=== PATIENT | female | born 1950 | race Caucasian/White ===

== ENCOUNTER → 2016-10-25 | Outpatient (CLI) | payer OTHER ==
--- NOTE | 2016-10-26 15:43 | Diagnostic Imaging Report ---
Bilateral screening mammogram 2D views with tomosynthesis. The current study was also evaluated with a Computer Aided Detection (CAD) system. INDICATION: Screening. No current complaints stated on the questionnaire. COMPARISON: 12/23/12. FINDINGS: Breasts are composed of scattered fibroglandular densities. There are occasional benign-appearing calcifications. Allowing for technique and positional differences, no suspicious change is seen. IMPRESSION: No significant change. ACR BI-RADS Category 2: Benign findings. Result letter will be mailed to the patient. Note: At least 10% of breast cancer is not imaged by mammography. Dictated by: Dictated on workstation # [id number]
== END ==
LOC: RAD 14:15
PROVIDERS: ATTEND Family Medicine
DX: Z12.31 Encounter for screening mammogram for malignant neoplasm of breast (principal); N64.4 Mastodynia
CPT/HCPCS: 77067

== ENCOUNTER 2016-11-08 05:39 | Outpatient (CLI) | payer OTHER ==
[~2016-11-08] VITALS: Ht 154.9 cm; Wt 72.6 kg
[2016-11-08] MEDS ORDERED: OMEP20TA7 PO (10:10)
[2016-11-08] MEDS ORDERED: CYCL10TA9 PO (10:10)
[2016-11-08] MEDS ORDERED: CITA40TA11 PO (10:10)
[2016-11-08] MEDS ORDERED: LOSA50TA36 PO (10:10)
== END 2016-11-08 10:11 ==
LOC: PREOP 05:39
PROVIDERS: ATTEND Surgery
DX: Z01.818 Encounter for other preprocedural examination (principal); K21.9 Gastro-esophageal reflux disease without esophagitis

== ENCOUNTER → 2016-11-09 | Outpatient (CLI) | payer OTHER, MEDICARE ==
[~2016-11-09] MED LIST: CITA40TA11 PO; CYCL10TA9 PO; LOSA50TA36 PO; OMEP20TA7 PO
[2016-11-09 08:45] LABS: BASOPHILS % (AUTO) 0 % (0-10); EOSINOPHILS # (AUTO) 0.2 10^3/uL (0.0-0.3); EOSINOPHILS % (AUTO) 3 % (0-10); LYMPHOCYTES # (AUTO) 1.6 X 10^3 (1.0-4.0); LYMPHOCYTES % (AUTO) 21 % (12-44); MEAN CORPUSCULAR HEMOGLOBIN 29 PG (25-34); MEAN CORPUSCULAR HGB CONC 33 G/DL (32-36); MEAN CORPUSCULAR VOLUME 87 FL (80-99); MEAN PLATELET VOLUME 10.5 FL (7.4-10.4); MONOCYTES # (AUTO) 0.2 X 10^3 (0.0-1.0); MONOCYTES % (AUTO) 3 % (0-12); NEUTROPHILS # (AUTO) 5.4 X 10^3 (1.8-7.8); NEUTROPHILS % (AUTO) 73 % (42-75); PLATELET COUNT 164 10^3/uL (130-400); RED BLOOD COUNT 4.67 10^6/uL (4.35-5.85); RED CELL DISTRIBUTION WIDTH 12.6 % (10.0-14.5); WHITE BLOOD COUNT 7.4 10^3/uL (4.3-11.0)
[2016-11-09 09:06] LABS: ALANINE AMINOTRANSFERASE 27 U/L (0-55); ALBUMIN 4.2 GM/DL (3.2-4.5); ANION GAP 11 MMOL/L (5-14); ASPARTATE AMINO TRANSFERASE 18 U/L (5-34); BILIRUBIN,TOTAL 0.4 MG/DL (0.1-1.0); BLOOD UREA NITROGEN 23 MG/DL (7-18); BUN/CREATININE RATIO 27; CALCIUM 9.6 MG/DL (8.5-10.1); CARBON DIOXIDE 25 MMOL/L (21-32); CHLORIDE 104 MMOL/L (98-107); CHOLESTEROL 274 MG/DL (< 200); CREATININE SERUM 0.86 MG/DL (0.60-1.30); DIRECT LDL 209 MG/DL (1-129); GFR ESTIMATED > 60; GLUCOSE 127 MG/DL (70-105); POTASSIUM 4.4 MMOL/L (3.6-5.0); SODIUM 140 MMOL/L (135-145); TOTAL PROTEIN 7.1 GM/DL (6.4-8.2); TRIGLYCERIDES 105 MG/DL (<150); VLDL CHOLESTEROL 21 MG/DL (5-40)
[2016-11-09 09:26] LABS: THYROID STIMULATING HORMONE 1.04 UIU/ML (0.35-4.94)
== END ==
LOC: LAB 07:54
PROVIDERS: ATTEND Family Medicine
DX: I10 Essential (primary) hypertension (principal); E78.2 Mixed hyperlipidemia; E03.8 Other specified hypothyroidism
CPT/HCPCS: 36415; 80053; 80061; 84443; 85025

== ENCOUNTER 2016-11-13 07:35 | Day surgery (SDC) | payer OTHER, MEDICARE ==
[~2016-11-13] VITALS: Ht 154.9 cm; Wt 72.6 kg
[2016-11-13 07:43] VITALS: BP 148/89
[2016-11-13] MEDS ORDERED: NS IV 500 ML 500 ML IV PRN (07:45)
[2016-11-13] MEDS ORDERED: fentaNYL INJECTION 100 MCG/2 ML AMP IVP PRN (08:00)
[2016-11-13] MEDS ORDERED: MIDAZOLAM 2 MG/2 ML (VERSED) VIAL IVP PRN (08:00)
[2016-11-13] MEDS ORDERED: HURRICAINE EXT TUBE (BENZOCAINE) XX PRN (08:00)
--- NOTE | 2016-11-13 08:43 | History & Physicial ---
History of Present Illness History of Present Illness Reason for visit/HPI to undergo an upper endoscopy regarding symptoms of reflux disease and for screening colonoscopy at the same time. Date of Admission Date Seen by Provider: Nov 13, 2016 Time Seen by Provider: 08:42 I consulted on this patient on 11/13/16 08:42 Attending Physician Dodie Guaman MD Admitting Physician Adriel Xavier MD Consult Allergies and Home Medications Allergies Coded Allergies: No Known Drug Allergies (Unverified , 11/08/16) Home Medications Citalopram Hydrobromide 40 Mg Tablet, 40 MG PO DAILY, (Reported) Cyclobenzaprine HCl 10 Mg Tablet, 10 MG PO TID, (Reported) Losartan Potassium 50 Mg Tablet, 50 MG PO DAILY, (Reported) Omeprazole 20 Mg Tablet.dr, 20 MG PO DAILY, (Reported) Past Psmcycw-Kxcbvo-Gajivp Hx Patient Social History Marrital Status: Employed/Student: retired Alcohol Use: Occasionally Uses Recreational Drug Use: No Smoking Status: Never a Smoker Recent Foreign Travel: No Contact w/other who traveled: No Recent Hopitalizations: No Recent Infectious Disease Expo: No Seasonal Allergies Seasonal Allergies: Yes Surgeries HX Surgeries: Yes (breast reduction, ) Surgeries: Hysterectomy Respiratory Hx Respiratory Disorders: No Cardiovascular Hx Cardiovascular Disorders: No Cardiac Disorders: Hypertension Neurological Hx Neurological Disorders: No Genitourinary Hx Genitourinary Disorders: No Gastrointestinal Hx Gastrointestinal Disorders: No Musculoskeletal Hx Musculoskeletal Disorders: No Endocrine Hx Endocrine Disorders: No HEENT HX ENT Disorders: Yes (glasses) Cancer Hx Cancer: No Psychosocial Hx Psychiatric Problems: No Integumentary HX Skin/Integumentary Disorder: No Blood Transfusions Hx Blood Disorders: No Constitutional: no symptoms reported EENTM: no symptoms reported Respiratory: no symptoms reported Cardiovascular: no symptoms reported Gastrointestinal: no symptoms reported Genitourinary: no symptoms reported Musculoskeletal: no symptoms reported Skin: no symptoms reported Psychiatric/Neurological: No Symptoms Reported Physical Exam Vital Signs Vital Sign - Last 12Hours 11/13/16 07:43 Temp 98.8 Pulse 75 Resp 18 B/P (MAP) 148/89 Pulse Ox 93 O2 Delivery Room Air Capillary Refill : General Appearance: No Apparent Distress HEENT: Normal ENT Inspection Neck: Normal Inspection Respiratory: Lungs Clear Cardiovascular: Regular Rate, Rhythm Gastrointestinal: Non Tender, Soft Rectal: Deferred Assessment/Plan Assessment and Plan symptoms of gastroesophageal reflux. Need for screening for colon cancer. Procedure details reviewed and she is willing to proceed. Problems: DODIE GUAMAN MD Nov 13, 2016 8:43 am
--- NOTE | 2016-11-13 08:44 | Conscious Sedation/ASA ---
Conscious Sedation Pre-Proced Time Reviewed: 08:44 ASA Class: 2 Airway Mallampati Classification: ([place] appropriate class) I. II. III, IV Lungs Heart ASA score ASA 1: a normal healthy patient ASA 2: a patient with a mild systemic disease (mid diabetes, controlled hypertension, obesity ASA 3: a patient with a severe systemic disease that limits activity (angina , COPD, prior Myocardial infarction) ASA 4: a patient with an incapacitating disease that is a constant threat to life (CHF, renal failure) ASA 5: a moribund patient not expected to survive 24 hrs. (ruptured aneurysm) ASA 6: a declared brain patient whose organs are being harvested. For emergent operations, add the letter E after the classification Grade 2 Sedation Plan: Discussed options with patient/fam Note The patient is an appropriate candidate to undergo the planned procedure, sedation, and anesthesia. The patient immediately re-assessed prior to indication. DODIE GUAMAN MD Nov 13, 2016 8:44 am
[2016-11-13] MEDS ORDERED: fentaNYL INJECTION 100 MCG/2 ML AMP ONE ×2 (08:58)
[2016-11-13] MEDS ORDERED: MIDAZOLAM 2 MG/2 ML (VERSED) VIAL ONE ×4 (08:58→08:59)
[2016-11-13] MEDS ORDERED: HURRICAINE EXT TUBE (BENZOCAINE) ONE (08:59)
[2016-11-13] MEDS: MIDAZOLAM 2 MG/2 ML (VERSED) VIAL IVP PRN ×3 (09:35→09:41)
[2016-11-13] MEDS: fentaNYL INJECTION 100 MCG/2 ML AMP IVP PRN ×2 (09:36→09:39)
--- NOTE | 2016-11-13 10:08 | Endo Procedure Record ---
Endo Procedure Report Date of Procedure Nov 13, 2016 Surgeon (s) DODIE GUAMAN MD Post Procedure/Op Diagnosis EGD: Distal esophageal stricture Colonoscopy: Sigmoid diverticulosis Procedure Performed 1.EGD with antral biopsy 2. Balloon dilatation of esophageal stricture 3. Colonoscopy to cecum Description of Procedure Anesthesia Type: Conscious Sedation Specimen(s) collected/removed antral mucosa Description of the Procedure Indication for procedure: This lady came in for an endoscopic assessment of ongoing symptoms of reflux disease, along with concomitant colonoscopy for screening purposes. Informed consent was obtained after reviewing the details of the procedure and highlighting the complications of iatrogenic perforation and post-polypectomy bleeding. Description of the procedures: EGD: She was placed in left lateral decubitus position and her vital signs were monitored. Conscious sedation was achieved using Versed and fentanyl. The flexible gastroscope was introduced down the esophagus, past the stomach, into the proximal duodenum. Findings Esophagus:The concentric, peptic stricture at the distal end, with an associated , short hiatal hernia. The stricture was dilated to 20 mm with a balloon. Stomach: Mild distal gastritis. Biopsy for H. pylori was obtained. Duodenum: Normal She tolerated the procedure well and was turned around in preparation for colonoscopy. Impression: Symptoms of reflux disease. Peptic esophageal stricture identified and dilated. Helicobacter status pending. Colonoscopy: Examination of the perianal area revealed external hemorrhoids and some skin tags. Digital examination was unremarkable. The colonoscope was then introduced in the rectum and advanced all the way up to the cecum. The scope was then withdrawn slowly and the mucosa examined in a systematic fashion. Findings: Very few sigmoid diverticula. She tolerated the procedures well and was taken back to the nursing area in a stable condition. Impression: Screening colonoscopy. No polyps. No family history. Recommend repeating in 10 years. Copies To: NELIDA TEJEDA MD, XAVIER M MD Nov 13, 2016 10:08 am
--- NOTE | 2016-11-13 10:10 | Discharge Inst-Simple/Standard ---
Discharge Inst-Standard Discharge Medications New, Converted or Re-Newed RX: Other Patient Instructions/Follow Up Plan of Care/Instructions/FU: Repeat colonoscopy in 10 years Activity as Tolerated: Yes Discharge Diet: No Restrictions DODIE GUAMAN MD Nov 13, 2016 10:09 am
[2016-11-13 10:20] VITALS: BP 126/66
[2016-11-13 11:00] VITALS: BP 125/74
[2016-11-13 11:23] VITALS: BP 125/74
== END 2016-11-13 11:23 | disposition home or self-care (01) ==
LOC: ENDO 07:35
PROVIDERS: ATTEND Surgery
DX: Z12.11 Encounter for screening for malignant neoplasm of colon (principal); K57.30 Diverticulosis of large intestine without perforation or abscess without bleeding; K22.2 Esophageal obstruction; K21.9 Gastro-esophageal reflux disease without esophagitis; K44.9 Diaphragmatic hernia without obstruction or gangrene; K64.4 Residual hemorrhoidal skin tags; I10 Essential (primary) hypertension; Z79.899 Other long term (current) drug therapy
CPT/HCPCS: 88305